=== PATIENT | male | born 1950 | race Two or more races ===

== ENCOUNTER 2018-11-24 18:29 | Emergency (ER) | payer OTHER ==
[~2018-11-24] VITALS: Ht 167.6 cm; Wt 68.0 kg
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
[2018-11-24 18:38] VITALS: BP 166/86
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
--- NOTE | 2018-11-24 18:56 | NUR ---
ED Nurse Note:pt. nathaniel to CT scan
[2018-11-24] MEDS ORDERED: Ketorolac 60mg Inj IM ONE (19:00)
--- NOTE | 2018-11-24 19:01 | NUR ---
[facility] is here(patient in X-ray)
--- NOTE | 2018-11-24 19:04 | NUR ---
HAND-OFF: Report given to Kamala.
[2018-11-24] MEDS ORDERED: IBUPROFEN400 MG ORAL (19:59)
[2018-11-24] MEDS ORDERED: CYCLOBENZAPRINE10 MG ORAL (19:59)
[2018-11-24 20:25] VITALS: BP 166/86
--- NOTE | 2018-11-24 20:26 | NUR ---
ED Nurse Note: Pt cleared by health care Provider for discharge. DC instructions/prescription was given and explained to pt and verbalized understanding of teachings. All medical deviecs such as ID band removed. Pt is AAO x4, ambulatory and left with all personal belongings.
--- NOTE | 2018-11-25 10:25 | Diagnostic Imaging Report ---
Indication: Neck pain. Technique: Continuous helical imaging of the cervical spine was obtained transaxially from the skull base to the upper thoracic spine. 2-D coronal and sagittal reformatted images were obtained. Automatic Exposure Control was utilized. Total Dose length Product (DLP): 331.[address] Dose Index Volume (CTDIvol): 13.65 mGy Comparison: None Findings: There is no acute fracture or malalignment identified. There is no soft tissue swelling identified. Moderate uncovertebral arthritis is demonstrated at multiple levels. Some of the intervertebral discs show narrowing and osteophytes. Impression: No acute injury Moderate spondylosis [facility] has communicated the preliminary results to the Emergency Department. Their findings are largely concordant with this report. The CT scanner at [facility] is accredited by the [employer] and the scans are performed using dose optimization techniques as appropriate to a performed exam including Automatic Exposure control.
--- NOTE | 2018-11-25 10:30 | Diagnostic Imaging Report ---
Indication: Back pain Technique: Continuous helical transaxial imaging of the lumbar spine was obtained. No IV contrast was administered. Coronal 2-D reformats were also obtained. Study obtained in a Siemens sensation [address] Total Dose length Product (DLP): 331.[address] Dose Index Volume (CTDIvol): 13.65 mGy Comparison: None Findings: There is no evidence of an acute fracture or malalignment. There is calcification of several of the intervertebral disks and some with vacuum phenomena. Endplate osteophyte formation and hypertrophied facets demonstrated multiple levels. There is a minimal anterolisthesis present at L4-5. There is a suggestion of significant spinal stenosis at multiple levels within the lumbar spine particularly in the lower part of the lumbar spine at L4-5 and L3-4. There is foraminal stenosis at L4-5 and L5-S1 as well probably worse on the right. Punctate calcifications noted within both kidneys consistent with a nonobstructive stones. IMPRESSION: No acute injury appreciated. Moderate degenerative changes of lumbar spine as described above. Evidence of bilateral nonobstructive renal stones. [facility] has communicated the preliminary results to the Emergency Department. Their findings are largely concordant with this report. The CT scanner at [facility] is accredited by the [employer] and the scans are performed using dose optimization techniques as appropriate to a performed exam including Automatic Exposure control.
== END 2018-11-24 20:15 | disposition home or self-care (01) ==
LOC: EDBD 18:29 → EMR 19:04
DX: S16.1XXA Strain of muscle, fascia and tendon at neck level, initial encounter (principal); S39.012A Strain of muscle, fascia and tendon of lower back, initial encounter; V43.52XA Car driver injured in collision with other type car in traffic accident, initial encounter; Y92.410 Unspecified street and highway as the place of occurrence of the external cause; M47.812 Spondylosis without myelopathy or radiculopathy, cervical region; M48.061 Spinal stenosis, lumbar region without neurogenic claudication; I10 Essential (primary) hypertension
CPT/HCPCS: 72125; 72131; 96372; 99284